=== PATIENT | female | born 1995 | race Caucasian/White ===

== ENCOUNTER 2016-06-16 21:51 | Outpatient (CLI) | payer OTHER ==
[~2016-06-16] VITALS: Ht 144.8 cm; Wt 83.0 kg
[2016-06-16 21:53] VITALS: BP 101/58
[2016-06-16 22:05] VITALS: BP 101/58
[2016-06-16] MEDS ORDERED: NITROFURANTOIN (MACROBID) 100 MG CAP PO ONE (22:30)
== END 2016-06-16 22:37 | disposition home or self-care (01) ==
LOC: M LDO 21:51
PROVIDERS: ATTEND Specialist
DX: N39.0 Urinary tract infection, site not specified (principal); Z3A.24 24 weeks gestation of pregnancy

== ENCOUNTER → 2016-07-09 | Outpatient (CLI) | payer OTHER ==
[2016-07-09 17:56] LABS: BASO % 0.2 % (0.0-1.0); EOS # 0.1 K/mm3 (0.0-0.50); EOS % 1.1 % (0.0-3.0); LARGE UNSTAINED CELL # 0.1 K/mm3 (0.0-0.4); LARGE UNSTAINED CELL % 0.9 % (0.0-4.0); LYMPH # 1.3 K/mm3 (1.5-6.5); LYMPH % 13.7 % (24.0-44.0); MEAN CORPUSCULAR HEMOGLOBIN 30.4 pg (27.0-33.0); MEAN CORPUSCULAR HGB CONC 34.1 g/dl (32.0-36.5); MEAN CORPUSCULAR VOLUME 89.1 fl (80.0-96.0); MONO # 0.3 K/mm3 (0.0-0.8); MONO % 3.3 % (0.0-5.0); NEUTROPHILS # 7.6 K/mm3 (1.8-7.7); NEUTROPHILS % 80.8 % (36.0-66.0); PLATELET COUNT, AUTOMATED 215 k/mm3 (150-450); RED CELL DISTRIBUTION WIDTH 13.2 % (11.5-14.5); WHITE BLOOD COUNT 9.4 K/mm3 (4.0-10.0)
== END ==
LOC: M LAB 15:28
PROVIDERS: ATTEND Advanced Practice Midwife
DX: Z34.83 Encounter for supervision of other normal pregnancy, third trimester (principal); Z36 Encounter for antenatal screening of mother; Z3A.00 Weeks of gestation of pregnancy not specified

== ENCOUNTER → 2016-07-14 | Outpatient (CLI) | payer OTHER | LOC: M LAB 06:28 | PROVIDERS: ATTEND Advanced Practice Midwife | DX: Z34.83 Encounter for supervision of other normal pregnancy, third trimester (principal); Z36 Encounter for antenatal screening of mother; Z3A.00 Weeks of gestation of pregnancy not specified ==

== ENCOUNTER 2016-07-26 09:16 | Outpatient (CLI) | payer OTHER ==
[2016-07-26] VITALS (11 sets, daily range): BP systolic 128–148; BP diastolic 71–87
[~2016-07-26] VITALS: Ht 144.8 cm; Wt 87.0 kg
[2016-07-26] MEDS ORDERED: ZANTTAB PO (09:45)
[2016-07-26] MEDS: LR 1,000 ML IV SCH ×3 (10:36→21:53)
[2016-07-26 12:18] LABS: MEAN CORPUSCULAR HGB CONC 34.6 g/dl (32.0-36.5); MEAN CORPUSCULAR VOLUME 89.6 fl (80.0-96.0); RED CELL DISTRIBUTION WIDTH 12.7 % (11.5-14.5); WHITE BLOOD COUNT 7.6 K/mm3 (4.0-10.0)
--- NOTE | 2016-07-26 12:23 | REP ---
OB ULTRASOUND: Real-time sonographic evaluation of the gravid uterus is performed utilizing transabdominal and endovaginal technique. There is a single living intrauterine gestation. The estimated age is 30 weeks 1 day based on LMP with EDC 10/03/2016. Today's measurements indicate suboptimal growth. Biometry and Growth: BPD 75 mm = 30 weeks 0 days, 49th percentile HC 267 mm = 29 weeks 1 day, 29th percentile AC 239 mm = 28 weeks 1 day, 10th percentile FL 60 mm = 31 weeks 0 days, 64th percentile HC/AC ratio 1.12 within normal range. Estimated weight 1375 grams, 26th percentile. SEEN/GROSSLY UNREMARKABLE Lateral ventricles Yes Posterior fossa Yes Upper lip Yes Four-chamber heart No LVOT No RVOT No Stomach Yes Cord insertion Yes Three vessel cord Yes Kidneys Yes Bladder Yes Spine Yes Cervical length: Closed and measures 2.2 cm in length. This is shortened. heart rate: 136 beats per minute. position: Vertex. Placenta: Posterior and grade 2 with no previa or abruption. Amniotic fluid: Within normal limits, ZORAIDA 11.2 within normal range of 8.7 to 24.0. Biophysical profile score is 6 out of 8 with no points for breathing. S/D ratio is elevated at 6.76, normal range 2.5 to 3.5. RI is 0.85 is above normal range of 0.59 to 0.75. Signed by Zacarias King MD 07/26/2016 12:56 P
[2016-07-26 12:27] LABS: ALBUMIN 2.8 GM/DL (3.2-5.2); ALBUMIN/GLOBULIN RATIO 0.85 (1.00-1.93); ALKALINE PHOSPHATASE 208 U/L (45-117); ALT/SGPT 10 U/L (12-78); AST/SGOT 13 U/L (15-37); BILIRUBIN,DIRECT < 0.1 MG/DL (0.0-0.2); BILIRUBIN,TOTAL 0.2 MG/DL (0.2-1.0); TOTAL PROTEIN 6.1 GM/DL (6.4-8.2)
[2016-07-26 12:36] LABS: INR 0.95
[2016-07-26] MEDS: BETAMETHASONE SOLUSPAN 6MG/ML INJ 5ML (J0702) IM SCH (12:36)
[2016-07-26 13:18] LABS: URIC ACID 6.1 MG/DL (2.6-6.0)
[2016-07-27] MEDS ORDERED: ACETAMINOPHEN 500 MG TAB PO ONE (05:45)
[2016-07-27 07:37] VITALS: BP 151/87
[2016-07-27 07:38] VITALS: BP 148/79
[2016-07-27 10:08] VITALS: BP 121/69
[2016-07-27 11:20] VITALS: BP 121/69
[2016-07-27] MEDS: BETAMETHASONE SOLUSPAN 6MG/ML INJ 5ML (J0702) IM SCH (12:00)
[2016-07-27 13:29] VITALS: BP 91/55
[2016-07-27 15:20] VITALS: BP 117/60
[2016-07-28] MEDS ORDERED: ACET50TA PO (08:20)
[2016-07-28] MEDS ORDERED: MORPHINE PRES-FREE INJ 10 MG/10 ML VIAL (J2274) As Ordered ONE (16:25)
[2016-07-28] MEDS ORDERED: ePHEDrine SULFATE 25 MG/5 ML(5MG/ML) SYRINGE As Ordered ONE (16:30)
[2016-07-28] MEDS ORDERED: DESFLURANE 240 ML INHALANT As Ordered ONE (16:43)
[2016-07-28] MEDS ORDERED: SEVOFLURANE INHAL SOLN 250 ML BTL As Ordered ONE (16:43)
[2016-07-28] MEDS ORDERED: PROPOFOL 200 MG/20 ML VIAL As Ordered ONE (16:44)
[2016-07-28] MEDS ORDERED: ONDANSETRON 4MG/2ML VIAL (J2405) As Ordered ONE (16:44)
== END 2016-07-27 16:10 | disposition home or self-care (01) ==
LOC: M LDO 09:16
PROVIDERS: ATTEND Advanced Practice Midwife
DX: O46.93 Antepartum hemorrhage, unspecified, third trimester (principal); O26.893 Other specified pregnancy related conditions, third trimester; Z3A.30 30 weeks gestation of pregnancy

== ENCOUNTER 2016-07-28 07:40 | Inpatient (IN) | payer OTHER ==
[2016-07-28] VITALS (49 sets, daily range): BP systolic 88–180; BP diastolic 53–98
[~2016-07-28] VITALS: Ht 144.8 cm; Wt 87.0 kg
[~2016-07-28 07:40] MED LIST: ZANTTAB PO
[2016-07-28] MEDS ORDERED: ACET50TA PO (08:20)
[2016-07-28] MEDS ORDERED: PERCOCET 5MG/325MG TAB PO ONE (09:15)
[2016-07-28 09:39] LABS: MEAN CORPUSCULAR HEMOGLOBIN 30.1 pg (27.0-33.0); MEAN CORPUSCULAR HGB CONC 33.5 g/dl (32.0-36.5); MEAN CORPUSCULAR VOLUME 89.9 fl (80.0-96.0); RED CELL DISTRIBUTION WIDTH 12.6 % (11.5-14.5); WHITE BLOOD COUNT 14.9 K/mm3 (4.0-10.0)
[2016-07-28] MEDS ORDERED: PROMETHAZINE INJ 25 MG/ML VIAL (J2550) IV PRN (09:45)
[2016-07-28] MEDS ORDERED: LR 1,000 ML IV SCH (09:45)
[2016-07-28] MEDS ORDERED: MORPHINE 4 MG/ML 1ML SYRINGE IV PRN (09:45)
[2016-07-28 09:50] LABS: ALT/SGPT 11 U/L (12-78); AST/SGOT 11 U/L (15-37); BILIRUBIN,TOTAL 0.2 MG/DL (0.2-1.0); GLOMERULAR FILTRATION RATE > 60.0 (>60); URIC ACID 5.1 MG/DL (2.6-6.0)
[2016-07-28] MEDS: MORPHINE 2 MG/ML 1ML SYRINGE IV PRN ×2 (10:32→13:00)
[2016-07-28] MEDS ORDERED: MAGNESIUM *L&D* 4 GM/100 ML BAG (40MG/ML) (J3475) As Ordered ONE (15:42)
[2016-07-28] MEDS ORDERED: MAGNESIUM SULFATE 4% INJ 20GM/500ML (40MG/ML) (J3475) As Ordered ONE (15:43)
[2016-07-28] MEDS ORDERED: BICITRA 30ML SOLN UDC As Ordered ONE (15:47)
[2016-07-28] MEDS ORDERED: ceFAZolin 2 GM/D5W 50 ML IV BAG (J0690) As Ordered ONE ×2 (15:47→16:01)
[2016-07-28] MEDS ORDERED: PORACTANT ALFA 80MG/ML 3 ML VIAL(CUROSURF) As Ordered ONE (16:30)
[2016-07-28] MEDS: MEPERIDINE INJ 25 MG/ML VIAL (J2175) IV PRN ×2 (17:45→17:53)
[2016-07-28] MEDS ORDERED: MEPERIDINE INJ 25 MG/ML VIAL (J2175) As Ordered ONE (17:47)
[2016-07-28] MEDS ORDERED: diphenhydrAMINE INJ 50MG/ML VIAL (J1200) IV PRN (18:00)
[2016-07-28] MEDS ORDERED: NALBUPHINE HCL 10 MG/ML AMP (J2300) IV PRN (18:00)
[2016-07-28] MEDS ORDERED: fentaNYL 100 MCG/2 ML INJECTION (J3010) IV PRN (18:00)
[2016-07-28] MEDS ORDERED: ONDANSETRON 4MG/2ML VIAL (J2405) IV PRN ×2 (18:00→18:15)
[2016-07-28] MEDS ORDERED: KETOROLAC 30 MG/ML VIAL (J1885) IV SCH (18:00)
[2016-07-28] MEDS ORDERED: CALCIUM GLUCONATE 1,000 MG in D5W MINI-BAG PLUS 100 ML IV PRN (18:15)
[2016-07-28] MEDS ORDERED: MEASLES,MUMPS,RUBELLA VACCINE INJ (MMR-II) (90707) SC SCH (18:15)
[2016-07-28] MEDS ORDERED: DOCUSATE SODIUM 100 MG CAP PO PRN (18:15)
[2016-07-28] MEDS ORDERED: PERCOCET 5MG/325MG TAB PO PRN ×2 (18:15)
[2016-07-28] MEDS ORDERED: MOM 30ML SUSPENSION UDC PO PRN (18:15)
[2016-07-28] MEDS ORDERED: OXYTOCIN DRIP 30 UNITS in APPROPRIATE DILUENT 1 EA IV ONE (18:15)
[2016-07-28] MEDS ORDERED: RHOGAM 300 MCG (1500 IU) INJ (J2790) IM SCH (18:15)
[2016-07-28 18:59] LABS: ALT/SGPT 126 U/L (12-78); AST/SGOT 252 U/L (15-37); BILIRUBIN,TOTAL 0.9 MG/DL (0.2-1.0); GLOMERULAR FILTRATION RATE > 60.0 (>60)
[2016-07-28] MEDS: MAG Sulf (OBGYN) 20GM/500ML 20,000 MG in APPROPRIATE DILUENT 1 EA IV SCH (22:11)
[2016-07-29] VITALS (21 sets, daily range): BP systolic 111–139; BP diastolic 69–90
[2016-07-29] MEDS: diphenhydrAMINE INJ 50MG/ML VIAL (J1200) IV PRN ×2 (00:41→20:45)
[2016-07-29] MEDS: KETOROLAC 30 MG/ML VIAL (J1885) IV SCH ×3 (03:47→15:44)
--- NOTE | 2016-07-29 05:56 | RO ---
DATE OF PROCEDURE: 07/28/2016 PREOPERATIVE DIAGNOSES: 1. Intrauterine at 30 weeks 4 days estimated gestational age. 2. Eclampsia remote from delivery. 3. Placenta abruption. POSTOPERATIVE DIAGNOSES: 1. Intrauterine at 30 weeks 4 days estimated gestational age. 2. Eclampsia remote from delivery. 3. Placenta abruption. PROCEDURE PERFORMED: Primary lower transverse section. SURGEON: Milly Montiel MD ASSISTANTS: Koby Fisher DO ANESTHESIA: Spinal anesthesia. ESTIMATED BLOOD LOSS: 500 mL. INTRAVENOUS FLUIDS: 1500 mL of lactated Ringer solution. URINE OUTPUT: 400 mL. PREOPERATIVE ANTIBIOTICS: 2 grams of Ancef. OPERATIVE FINDINGS: Liveborn female infant Weight was 1116 grams or 2 pounds 7 ounces. Placenta with evidence of placental abruption. INDICATION FOR OPERATION: Ms. Hightower is a 20-year-old, initially presented 07/26/2016 with acute vaginal bleeding. She suspected for having a clinical abruption. She had remained stable for greater than 24 hours. She had received a course of steroids for lung maturity and was discharged home on 07/27/2016 in stable condition. On 07/28/2016, she presented with an acute onset of neck, shoulder pain with a headache. She described this headache as being severe in nature and had no prior history of migraines or headache syndromes. On presentation, she also had nausea and vomiting and upon my initial assessment she was noted to have elevated blood pressures. Blood pressures where very labile, ranging from severe to normotensive at times. She was quickly assessed with preeclamptic labs. She was provided with intravenous (IV) hydration, was given antiemetics and morphine for pain, which appears to have improved her symptoms initially, but returned within a couple of hours. Protein urine creatinine had returned at 1.3 , officially diagnosing her with preeclampsia, presented with severe features. Shortly after this assessment, the patient experienced a eclamptic seizure and she was given a 6 gram loading bolus of magnesium sulfate and then stabilized. During this episode, the heart rate had remained reassuring. Once Ms. Hightower had recovered and was out of her postictal state, decision was made to proceed with the delivery secondary to her eclampsia remote from delivery. DESCRIPTION OF OPERATION: After informed consent was obtained, the patient was brought to the operating room where spinal anesthesia was placed. She was then placed in supine position with a left lateral tilt. A Campos catheter was placed and set to gravity. She was then prepped and draped in a normal sterile fashion. A time-out in the operating room was then performed, identifying the patient, procedure to be performed, as well as drug allergies. Anesthesia was tested and deemed to be adequate. A Pfannenstiel skin incision was then made and carried down to the underlying rectus fascia. The fascia was then scored and this incision was extended bilaterally. The fascia was then dissected off the underlying rectus muscles both superiorly and inferiorly. The rectus muscles were in the midline. The peritoneum was then entered. The vesicouterine peritoneum was then identified, was tented and excised to create a bladder flap. The bladder blade was then placed to retract back the bladder. Curvilinear incision was made in the lower uterine segment. Amniotomy was then performed productive of clear fluid. head was brought to the level of the incision atraumatically, followed by delivery of shoulders and corpus. Cord was clamped times two and was cut. was taken over to the warmer where Dr. Woo, supervisor drying and softening, awaited. Cord blood was then obtained. Placenta was then delivered grossly intact. The uterus was then exteriorized and cleared of all clots and debris. The uterine incision was then closed in two layers using #0 Vicryl, first layer in a running locking fashion, followed by a second layer for imbrication in a running nonlocking fashion. The abdomen was then suctioned. The uterus was returned to the patient's abdomen. It was once again inspected and noted to be hemostatic. The anterior peritoneum was then reapproximated with #3-0 Vicryl. Rectus muscles were reapproximated with #3-0 Vicryl. The fascia was then closed with #0 Vicryl in a running nonlocking fashion. Next, the subcutaneous tissue was then irrigated and suctioned. Subcutaneous tissue was then reapproximated with #3-0 Vicryl. Several subdermal stitches were placed with #3-0 Vicryl and the skin was closed with #4-0 Monocryl in a subcuticular fashion. The incision was then cleaned and dry. Mastisol was applied above, below the incision. Steri-Strips were applied over the incision. The incision was then dressed. Patient was then taken to recovery in stable condition. Counts were correct. MTDD
[2016-07-29 07:01] LABS: MEAN CORPUSCULAR HEMOGLOBIN 30.9 pg (27.0-33.0); MEAN CORPUSCULAR HGB CONC 34.2 g/dl (32.0-36.5); MEAN CORPUSCULAR VOLUME 90.6 fl (80.0-96.0); WHITE BLOOD COUNT 11.4 K/mm3 (4.0-10.0)
[2016-07-29 07:06] LABS: ALT/SGPT 99 U/L (12-78); AST/SGOT 188 U/L (15-37); BILIRUBIN,TOTAL 0.7 MG/DL (0.2-1.0); CREATININE FOR GFR 0.76 MG/DL (0.55-1.02); GLOMERULAR FILTRATION RATE > 60.0 (>60); URIC ACID 6.2 MG/DL (2.6-6.0)
[2016-07-29] MEDS ORDERED: IBUP800T23 PO (07:16)
[2016-07-29] MEDS ORDERED: OXYC1TAB23 PO (07:17)
[2016-07-29] MEDS: LR 1,000 ML IV SCH ×4 (07:22→21:34)
[2016-07-29] MEDS: PRENATAL VITAMIN TAB PO SCH ×2 (08:42→09:00)
[2016-07-29] MEDS: MAG Sulf (OBGYN) 20GM/500ML 20,000 MG in APPROPRIATE DILUENT 1 EA IV SCH ×2 (08:42→18:55)
[2016-07-29 17:14] LABS: BASO % 0.2 % (0.0-1.0); EOS # 0.1 K/mm3 (0.0-0.50); EOS % 0.6 % (0.0-3.0); LARGE UNSTAINED CELL # 0.1 K/mm3 (0.0-0.4); LARGE UNSTAINED CELL % 0.6 % (0.0-4.0); LYMPH # 1.2 K/mm3 (1.5-6.5); LYMPH % 12.9 % (24.0-44.0); MEAN CORPUSCULAR HGB CONC 34.7 g/dl (32.0-36.5); MEAN CORPUSCULAR VOLUME 89.2 fl (80.0-96.0); MONO # 0.5 K/mm3 (0.0-0.8); MONO % 4.7 % (0.0-5.0); NEUTROPHILS # 7.7 K/mm3 (1.8-7.7); NEUTROPHILS % 80.9 % (36.0-66.0); WHITE BLOOD COUNT 9.5 K/mm3 (4.0-10.0)
[2016-07-29 17:16] LABS: ALBUMIN 2.5 GM/DL (3.2-5.2); ALBUMIN/GLOBULIN RATIO 0.86 (1.00-1.93); ALKALINE PHOSPHATASE 165 U/L (45-117); ALT/SGPT 81 U/L (12-78); ANION GAP 9 MEQ/L (8-16); AST/SGOT 90 U/L (15-37); BILIRUBIN,TOTAL 0.4 MG/DL (0.2-1.0); BLOOD UREA NITROGEN 8 MG/DL (7-18); CALCIUM LEVEL 6.1 MG/DL (8.5-10.1); CARBON DIOXIDE LEVEL 28 MEQ/L (21-32); CHLORIDE LEVEL 100 MEQ/L (98-107); CREATININE FOR GFR 0.68 MG/DL (0.55-1.02); GLOMERULAR FILTRATION RATE > 60.0 (>60); GLUCOSE, FASTING 102 MG/DL (70-105); POTASSIUM SERUM 3.8 MEQ/L (3.5-5.1); SODIUM LEVEL 137 MEQ/L (136-145); TOTAL PROTEIN 5.4 GM/DL (6.4-8.2); URIC ACID 5.8 MG/DL (2.6-6.0)
[2016-07-29 17:27] LABS: PLATELET COUNT, AUTOMATED 62 k/mm3 (150-450)
[2016-07-29] MEDS ORDERED: LIDOCAINE 2% JELLY 30 ML TOP ONE (20:00)
--- NOTE | 2016-07-29 21:17 | HPE ---
DATE OF ADMISSION: 07/28/2016 REASON FOR ADMISSION: Preeclampsia, eclampsia. HISTORY OF PRESENT ILLNESS: Ms. Hightower is a 20-year-old 1, who presented at 30 weeks and 3 days estimated gestational age by first trimester ultrasound with complaints of neck, shoulder and headache. This patient was initially evaluated on the of this month for acute onset of vaginal bleeding. She was assessed and was given a diagnosis of a chronic abruption. She was monitored and evaluated for more than 24 hours. Her bleeding had subsided. She had remained stable and had received a full course of steroids and was discharged home on the in stable condition to followup in the obstetric office (OB). She presented this morning with complaints of headache that was severe in nature, that was not relieved with Tylenol at home over the night. She denied any visual changes, persistent abdominal pain or decreased movement, vaginal bleeding, contractions or leakage of fluid. Upon her presentation to labor and delivery and she had severe nausea and emesis. With her initial evaluation, she had elevated blood pressures, 151/77 with intermittent severe range systolic blood pressure to 160s. She was given IV bolus along with antiemetics and morphine, which reduced the intensity of her headache and allowed her to sleep. Preeclamptic labs were obtained. She had a normal preeclamptic panel and complete blood count (CBC) was unremarkable, platelets of 204. Her proteinuria creatine ratio was obtained that was 1.3 inclusive of preeclampsia. Shortly after, Ms. Hightower had a eclamptic seizure which was witnessed. She was given a 6 gram bolus of magnesium sulfate and started on 2 grams of magnesium sulfate for neuro prophylaxis. After her bolus was complete, her course had been unremarkable for third trimester bleeding. PAST MEDICAL HISTORY: None. PAST SURGICAL HISTORY: Oral surgery. OBSTETRICAL HISTORY: She is 1. Her medications include vitamins. ALLERGIES: She has allergies to SULFUR. SOCIAL HISTORY: She denied any alcohol, tobacco or drug use during her . PHYSICAL EXAMINATION: Blood pressures were elevated, appeared to labile with intermittent systolic in the 160s even to 170s. GENERAL APPEARANCE: She had reassuring tracing. ABDOMEN: Soft, gravid, nontender. INITIAL LABORATORY: Her complete blood count (CBC), white count was 14.9, hemoglobin 11.7, hematocrit 34.9, platelets were 204. Her creatine was 0.6. Uric acid 5.1. Bilirubin 0.2. AST 11, ALT 11, LDH was 208. All other unremarkable. Protein creatine ratio was 1.3. ASSESSMENT: Mr. Hightower is a 20-year-old, 1, at 30 weeks and 3 days estimated gestational age, eclampsia currently stable. PLAN: Continue to recover both mom and the baby and will proceed with delivery secondary to her eclampsia and being remote from delivery. MTDD
[2016-07-29] MEDS: IBUPROFEN 800 MG TAB PO SCH (23:33)
[2016-07-30] VITALS (15 sets, daily range): BP systolic 118–151; BP diastolic 68–92
[2016-07-30] MEDS: MAG Sulf (OBGYN) 20GM/500ML 20,000 MG in APPROPRIATE DILUENT 1 EA IV SCH ×2 (00:02→04:55)
[2016-07-30] MEDS ORDERED: SODIUM CHLORIDE NASAL 0.65% SPRAY BTL (OCEAN) PRN (07:00)
[2016-07-30 07:45] LABS: BASO % 0.2 % (0.0-1.0); EOS # 0.1 K/mm3 (0.0-0.50); EOS % 1.1 % (0.0-3.0); LARGE UNSTAINED CELL # 0.1 K/mm3 (0.0-0.4); LYMPH # 1.4 K/mm3 (1.5-6.5); LYMPH % 12.4 % (24.0-44.0); MEAN CORPUSCULAR HEMOGLOBIN 30.5 pg (27.0-33.0); MEAN CORPUSCULAR HGB CONC 33.6 g/dl (32.0-36.5); MEAN CORPUSCULAR VOLUME 90.8 fl (80.0-96.0); MONO # 0.5 K/mm3 (0.0-0.8); MONO % 5.1 % (0.0-5.0); NEUTROPHILS # 8.5 K/mm3 (1.8-7.7); NEUTROPHILS % 80.2 % (36.0-66.0); WHITE BLOOD COUNT 10.6 K/mm3 (4.0-10.0)
[2016-07-30 07:50] LABS: PLATELET COUNT, AUTOMATED 71 k/mm3 (150-450)
[2016-07-30 08:04] LABS: ALBUMIN 2.3 GM/DL (3.2-5.2); ALBUMIN/GLOBULIN RATIO 0.82 (1.00-1.93); ALKALINE PHOSPHATASE 150 U/L (45-117); ALT/SGPT 61 U/L (12-78); ANION GAP 8 MEQ/L (8-16); AST/SGOT 40 U/L (15-37); BILIRUBIN,TOTAL 0.3 MG/DL (0.2-1.0); BLOOD UREA NITROGEN 9 MG/DL (7-18); CARBON DIOXIDE LEVEL 29 MEQ/L (21-32); CHLORIDE LEVEL 102 MEQ/L (98-107); CREATININE FOR GFR 0.61 MG/DL (0.55-1.02); GLOMERULAR FILTRATION RATE > 60.0 (>60); GLUCOSE, FASTING 87 MG/DL (70-105); POTASSIUM SERUM 3.8 MEQ/L (3.5-5.1); SODIUM LEVEL 139 MEQ/L (136-145); TOTAL PROTEIN 5.1 GM/DL (6.4-8.2); URIC ACID 5.8 MG/DL (2.6-6.0)
[2016-07-30 08:18] LABS: CALCIUM LEVEL 5.7 MG/DL (8.5-10.1)
[2016-07-30 08:19] LABS: MAGNESIUM LEVEL 7.9 MG/DL (1.8-2.4)
[2016-07-30] MEDS: PRENATAL VITAMIN TAB PO SCH (08:48)
[2016-07-30] MEDS: IBUPROFEN 800 MG TAB PO SCH ×3 (08:48→23:28)
--- NOTE | 2016-07-30 09:00 | REP ---
Right lower extremity Duplex Doppler venous ultrasound: Real time compression and duplex Doppler interrogation of the right lower extremity deep venous system is performed. The right common femoral, superficial femoral and popliteal veins are fully compressible with transducer pressure and demonstrate normal spontaneous and phasic flow, without evidence of deep venous thrombosis. Impression: No evidence of deep venous thrombosis of the right lower extremity femoral popliteal venous system. Signed by Zacarias King MD 07/30/2016 08:51 A
[2016-07-30] MEDS: LR 1,000 ML IV SCH (10:02)
[2016-07-31 01:25] VITALS: BP 139/82
[2016-07-31 05:32] VITALS: BP 143/98
[2016-07-31 06:40] LABS: MEAN CORPUSCULAR HEMOGLOBIN 30.3 pg (27.0-33.0); MEAN CORPUSCULAR VOLUME 91.8 fl (80.0-96.0); RED CELL DISTRIBUTION WIDTH 13.4 % (11.5-14.5); WHITE BLOOD COUNT 11.4 K/mm3 (4.0-10.0)
[2016-07-31] MEDS: IBUPROFEN 800 MG TAB PO SCH (07:30)
[2016-07-31] MEDS: PRENATAL VITAMIN TAB PO SCH (07:30)
--- NOTE | 2016-07-31 10:20 | DSES ---
DATE OF ADMISSION: 07/28/2016 DATE OF DISCHARGE: 07/31/2016 DISCHARGE DIAGNOSIS: 1. Postoperative day #3 primary section, stable condition. 2. HELLP syndrome. 3. Severe preeclampsia, resolving in stable condition. SURGEON Dr. Milly Montiel HISTORY: Solomon is a 20-year-old 1, para 0-1-0-1 now who was admitted to labor and delivery with severe preeclampsia. Eclampsia in the onset of HELLP syndrome. She underwent a primary section following an eclamptic seizure and stabilization. Her surgical operative course was unremarkable, uncomplicated. She delivered a live female 31+ weeks, 1116 grams, 2 pounds 7 ounces, who was transferred to [facility] intensive care unit. Her postoperative course has been complicated by the onset of HELLP syndrome. Her labs have improved. Initially on 07/29, she had a hemoglobin of 10.3, hematocrit 30.3, platelets of 60 and today her hemoglobin is 11, hematocrit 33.5 and platelets are 98. Her pre-eclamptic profile has also improved. Her AST is 40. Her ALT was 61. Her alkaline phosphatase is 150 and her LDH was 496 which has come down from 872, uric acid 5.8. She has been voiding without difficulty. She denies complete resolution of headaches, blurred vision, no epigastric pain. No right upper quadrant pain since delivery. She has been out of bed for self care, anika care, showering. She is tolerating a regular diet. Her vital signs are stable today. Her temperature is 95, pulse 79, respirations 22, her blood pressures remain 143/98 this morning, they run systolics in the 130 to 140 and diastolics in the in the 70s to 80s. She does desire discharge today. PLAN: Discharge the patient home per consult with Dr. Quang Lopez. She does plan on going to [place] and obtaining a room at the [facility] to be near her premature infant. I have reviewed discharge instructions which include blood pressure check while she is at [facility] Blood pressure check in 3- 4 days at [facility], two-week followup at [facility] for an incision check [facility] and a 6-week appointment at [facility]. Prescriptions for oral Percocet has been E prescribed by her surgeon and sent to her pharmacy. She may also take ibuprofen and Tylenol as needed. I did review discharge instructions which include breast care incision care, anika care, pelvic rest, activity and lifting restrictions, access to care, other danger signs in which to report related to worsening HELLP syndrome and preeclampsia. The patient has had all her questions answered and will be discharged to home. JARET
[2016-07-31] MEDS ORDERED: PRENTAB9 PO (11:00)
== END 2016-07-31 11:35 | disposition home or self-care (01) | DRG 540 ==
LOC: M LDO 07:40 → M LDI 10:15 → M LDO 15:46 → M LDI 15:47 → M OBS 18:30
PROVIDERS: ADMIT Obstetrics & Gynecology; ATTEND Obstetrics & Gynecology
PROC: 10D00Z1 Extraction of Products of Conception, Low, Open Approach (ICD-10-PCS; principal; 2016-07-28 17:26)
DX: O15.03 Eclampsia complicating pregnancy, third trimester (principal); O45.93 Premature separation of placenta, unspecified, third trimester; Z3A.30 30 weeks gestation of pregnancy; Z37.0 Single live birth; O14.14 Severe pre-eclampsia complicating childbirth; O14.25 HELLP syndrome, complicating the puerperium

== ENCOUNTER → 2017-01-18 | Outpatient (REF) | payer OTHER ==
[~2017-01-18] MED LIST changes: +ACET50TA PO; +IBUP1TAB7 PO; +OXYC1TAB23 PO; +PRENTAB9 PO
== END ==
LOC: M LAB REF 13:06
PROVIDERS: ATTEND Obstetrics & Gynecology
DX: Z12.4 Encounter for screening for malignant neoplasm of cervix (principal)

== ENCOUNTER → 2017-06-24 | Outpatient (REF) | payer OTHER | LOC: M SFHCADAM 13:57 | DX: F34.1 Dysthymic disorder (principal); E55.9 Vitamin D deficiency, unspecified ==

== ENCOUNTER → 2017-06-28 | Outpatient (CLI) | payer OTHER ==
[2017-06-28 16:29] LABS: FREE T4 1.19 NG/DL (0.76-1.46); TOTAL 25(OH) VITAMIN D 13.3 NG/ML (30.0-100.0)
== END ==
LOC: M LAB 15:20
DX: F34.1 Dysthymic disorder (principal); E55.9 Vitamin D deficiency, unspecified
CPT/HCPCS: 84443

== ENCOUNTER → 2017-09-09 | Outpatient (REF) | payer OTHER | LOC: M SFHCADAM 19:23 | DX: R10.9 Unspecified abdominal pain (principal) ==

== ENCOUNTER → 2017-12-22 | Outpatient (REF) | payer OTHER | LOC: M SFHCLERA 16:22 | DX: J02.9 Acute pharyngitis, unspecified (principal) ==

== ENCOUNTER → 2018-03-07 | Outpatient (CLI) | payer OTHER | LOC: M LRY 18:46 | DX: M25.562 Pain in left knee (principal) | CPT/HCPCS: 73564 ==

== ENCOUNTER 2018-11-16 09:07 | Emergency (ER) | payer OTHER ==
[~2018-11-16] VITALS: Ht 144.8 cm; Wt 52.6 kg
[~2018-11-16 09:07] MED LIST changes: -ACET50TA PO; +MAPA500T2 PO; +ZANT150T40 PO; -ZANTTAB PO
[2018-11-16] MEDS ORDERED: HYDR-3363 (09:17)
[2018-11-16] MEDS ORDERED: XULA1DIS (09:17)
[2018-11-16] MEDS ORDERED: ALBU8.5H (09:17)
[2018-11-16 10:55] LABS: ALT/SGPT 20 U/L (12-78); BILIRUBIN,DIRECT 0.2 MG/DL (0.0-0.2); BILIRUBIN,TOTAL 0.6 MG/DL (0.2-1.0); BLOOD UREA NITROGEN 7 MG/DL (7-18); CALCIUM LEVEL 9.5 MG/DL (8.5-10.1); CARBON DIOXIDE LEVEL 27 MEQ/L (21-32); CHLORIDE LEVEL 108 MEQ/L (98-107); CK-MB VALUE MASS < 1.0 NG/ML (<3.6); CPK CREATINE PHOSPHOKINASE 48 U/L (26-192); FREE T4 1.17 NG/DL (0.76-1.46); GLOMERULAR FILTRATION RATE > 60.0 (>60); GLUCOSE, FASTING 76 MG/DL (70-100); MB/CK RELATIVE INDEX 2.08 (< OR =4); POTASSIUM SERUM 4.1 MEQ/L (3.5-5.1); SODIUM LEVEL 141 MEQ/L (136-145); THYROID STIMULATING HORMONE 0.604 uIU/ML (0.358-3.740); TOTAL PROTEIN 7.2 GM/DL (6.4-8.2); TROPONIN I < 0.02 NG/ML (< 0.10)
--- NOTE | 2018-11-16 10:58 | REP ---
Chest x-ray: Two views. History: Chest pain . Comparison study: June 06, 2015 . Findings: The lungs are well inflated and free of infiltrate. The pleural angles are sharp. The heart size is normal. Pulmonary vasculature is not increased. No significant bony abnormality is seen. Impression: Negative chest x-ray. Electronically Signed by Guillermo Galvan MD 11/16/2018 10:49 A
[2018-11-16 11:33] VITALS: BP 110/60
--- NOTE | 2018-11-16 19:23 | ECGEPIP ---
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
== END 2018-11-16 11:34 | disposition home or self-care (01) ==
LOC: M ED 09:07
DX: F41.9 Anxiety disorder, unspecified (principal); R07.89 Other chest pain; R94.31 Abnormal electrocardiogram [ECG] [EKG]; Z79.899 Other long term (current) drug therapy; Z88.2 Allergy status to sulfonamides

== ENCOUNTER → 2018-11-20 | Outpatient (CLI) | payer OTHER ==
[~2018-11-20] MED LIST changes: +ALBU8.5H; +HYDR-3363; +XULA1DIS
--- NOTE | 2018-11-21 20:17 | HOLTMON ---
[facility] Test Date: 2018-11-20 Pat Name: ELIZABETH VARGAS Department: Room: - Gender: Female Life Educator: KAYCEE CAPELLAN : 1995 Requested By: Robert Burr Order Number: [id number] Reading MD: Darwin Redding Interpretive Statements LEADS FELL OFF THREW OUT HOLTER PT STATED SHE FELT FINE. DID NOT BRING HER DIARY BACK CLAIMED SHE WAS FINE. Underlying sinus rhythm with rates 39 bpm at 5:22 AM and 108 bpm at 8:51 AM, averaging 65 bpm. No significant diurnal bradycardia or AV block. 22 isolated PACs, 4 atrial couplets and 2 atrial triplets but no PSVT. An average of 169 PVCs per hour, total of 12 ventricular couplets but no ventricular tachycardia. No diary was returned; the patient reported feeling well. The observed low grade ventricular ectopic activity would be considered outside normal limits. These were chiefly of a LBBB configuration suggestive of right ventricular outflow tract origin. The prognosis associated with this arrhythmia is directly related to the presence and severity of any associated structural heart disease. A search for potentially aggravating reversible factors should be made i.e. excessive caffeine, nicotine or alcohol intake. Use of [id number] decongestants, pep pills, or dietary aids Electronically Signed on 11-21-2018 20:17:35 EDT by Darwin Redding
== END ==
LOC: M EKG 10:32
PROVIDERS: ATTEND Family Medicine
DX: R00.2 Palpitations (principal)

== ENCOUNTER → 2019-03-12 | Outpatient (REF) | payer OTHER | LOC: M LAB REF 17:26 | PROVIDERS: ATTEND Physician Assistant | DX: R05 Cough (principal) ==

== ENCOUNTER → 2019-05-04 | Outpatient (CLI) | payer OTHER ==
--- NOTE | 2019-05-04 14:21 | REP ---
Clinical: Left shoulder pain . Technique: Internal rotation, external rotation, and Y view. Findings: No acute fracture or dislocation. The acromioclavicular and glenohumeral joints are intact. No periarticular calcifications or degenerative changes are appreciated. Sub acromial space is normal. Surrounding soft tissues are unremarkable. Impression: Normal left shoulder radiographs. Electronically Signed by Shailesh Olson MD 05/04/2019 02:13 P
== END ==
LOC: M ADAMS 14:01
PROVIDERS: ATTEND Physician Assistant Medical
DX: M25.512 Pain in left shoulder (principal)

== ENCOUNTER → 2019-06-28 | Outpatient (CLI) | payer OTHER ==
[2019-06-28 18:10] LABS: BASO % 0.7 % (0.0-1.0); EOS # 0.2 10^3/uL (0.0-0.5); EOS % 2.8 % (0.0-3.0); HEMATOCRIT 46.7 % (36.0-47.0); LYMPH # 1.7 10^3/uL (1.5-5.0); LYMPH % 28.1 % (24.0-44.0); MEAN CORPUSCULAR HEMOGLOBIN 30.2 pg (27.0-33.0); MEAN CORPUSCULAR HGB CONC 32.1 g/dl (32.0-36.5); MONO # 0.5 10^3/uL (0.0-0.8); MONO % 8.1 % (0.0-5.0); NEUTROPHILS # 3.7 10^3/uL (1.5-8.5); NEUTROPHILS % 60.1 % (36.0-66.0); PLATELET COUNT, AUTOMATED 197 10^3/uL (150-450); RED BLOOD COUNT 4.97 10^6/uL (4.00-5.40); WHITE BLOOD COUNT 6.1 10^3/uL (4.0-10.0)
[2019-06-28 18:13] LABS: HCG, SERUM QUALITATIVE NEGATIVE (NEGATIVE)
[2019-06-28 18:21] LABS: FREE T4 1.03 NG/DL (0.76-1.46); THYROID STIMULATING HORMONE 0.445 uIU/ML (0.358-3.740)
== END ==
LOC: M PLALAB 13:41
PROVIDERS: ATTEND Advanced Practice Midwife
DX: N92.6 Irregular menstruation, unspecified (principal)

== ENCOUNTER → 2019-10-23 | Outpatient (REF) | payer OTHER | LOC: M SFHCWAGY 11:52 | PROVIDERS: ATTEND Advanced Practice Midwife | DX: Z12.4 Encounter for screening for malignant neoplasm of cervix (principal); Z01.419 Encounter for gynecological examination (general) (routine) without abnormal findings ==

== ENCOUNTER → 2020-05-20 | Outpatient (CLI) | payer SELFPAY | LOC: M LABSMTC 09:38 | PROVIDERS: ATTEND Pediatrics | DX: Z20.828 Contact with and (suspected) exposure to other viral communicable diseases (principal) ==

== ENCOUNTER → 2020-06-02 | Outpatient (REF) | payer OTHER | LOC: M LAB REF 16:03 | PROVIDERS: ATTEND Physician Assistant Medical | DX: R50.9 Fever, unspecified (principal); R05 Cough ==

== ENCOUNTER → 2021-02-10 | Outpatient (REF) | payer OTHER, MEDICAID | LOC: M SFHCWAGY 18:03 | PROVIDERS: ATTEND Advanced Practice Midwife | DX: Z12.4 Encounter for screening for malignant neoplasm of cervix (principal) ==

== ENCOUNTER → 2021-10-07 | Outpatient (REF) | payer OTHER, MEDICAID ==
[2021-10-07 22:02] LABS: APPEARANCE, URINE CLOUDY (CLEAR); BACTERIA, URINE AUTO NEGATIVE (NEGATIVE); BILIRUBIN, URINE AUTO NEGATIVE (NEGATIVE); BLOOD, URINE BLOOD NEGATIVE (NEGATIVE); COLOR, URINE AMBER (YELLOW); GLUCOSE, URINE (UA) AUTO NEGATIVE (NEGATIVE); KETONE, URINE AUTO TRACE mg/dL (NEGATIVE); LEUKOCYTE ESTERASE, URINE AUTO NEGATIVE (NEGATIVE); MUCUS, URINE LARGE (NEGATIVE); NITRITE, URINE AUTO NEGATIVE (NEGATIVE); PROTEIN, URINE AUTO 1+ mg/dL (NEGATIVE); RBC, URINE AUTO 2 /HPF (0-3); SPECIFIC GRAVITY URINE AUTO 1.026 (1.002-1.035); SQUAMOUS EPITHELIAL CELL UR AU 24 /HPF (0-6); WBC, URINE AUTO 1 /HPF (0-3)
== END ==
LOC: M LAB REF 21:26
PROVIDERS: ATTEND Physician Assistant
DX: N39.0 Urinary tract infection, site not specified (principal)

== ENCOUNTER → 2022-08-20 | Outpatient (CLI) | payer OTHER ==
[~2022-08-20] MED LIST changes: +ALTA1TAB3; +AMPH1CAP16; +LAMO100T3; +OMEP40CA4 PO; +ONDA4TAB6
[2022-08-20 18:46] LABS: EOS # 0.1 10^3/uL (0.0-0.5); EOS % 4.6 % (0.0-3.0); HEMATOCRIT 36.4 % (36.0-47.0); HEMOGLOBIN 11.1 g/dl (12.0-15.5); LYMPH % 33.7 % (24.0-44.0); MEAN CORPUSCULAR HEMOGLOBIN 25.3 pg (27.0-33.0); MEAN CORPUSCULAR HGB CONC 30.5 g/dl (32.0-36.5); MEAN CORPUSCULAR VOLUME 83.1 fl (80.0-96.0); MONO # 0.3 10^3/uL (0.0-0.8); MONO % 9.2 % (2.0-8.0); NEUTROPHILS # 1.6 10^3/uL (1.5-8.5); NEUTROPHILS % 51.2 % (36.0-66.0); PLATELET COUNT, AUTOMATED 236 10^3/uL (150-450); RED BLOOD COUNT 4.38 10^6/uL (4.00-5.40)
[2022-08-20 19:14] LABS: LIPASE 32 U/L (12-53)
[2022-08-20 19:16] LABS: ALBUMIN 3.8 G/DL (3.2-5.2); ALKALINE PHOSPHATASE 79 U/L (46-116); ALT/SGPT 14 U/L (7.0-40); AMYLASE 61 U/L (30-118); AST/SGOT 16 U/L (<34); BILIRUBIN,TOTAL 0.3 MG/DL (0.3-1.2); BLOOD UREA NITROGEN 8 MG/DL (9-23); CALCIUM LEVEL 8.8 MG/DL (8.5-10.1); CARBON DIOXIDE LEVEL 23 MMOL/L (20-31); CHLORIDE LEVEL 106 MMOL/L (98-107); CREATININE FOR GFR 0.77 MG/DL (0.55-1.30); GLOMERULAR FILTRATION RATE > 60.0 (>60); GLUCOSE, FASTING 73 MG/DL (60-100); IRON (FE) 20 UG/DL (50-170); PERCENT SATURATION 3.8 % (13.2-45.0); POTASSIUM SERUM 4.3 MMOL/L (3.5-5.1); SODIUM LEVEL 139 MMOL/L (136-145); TOTAL IRON BINDING CAPACITY 533 UG/DL (250-425); TOTAL PROTEIN 6.7 G/DL (5.7-8.2)
[2022-08-23 15:09] LABS: EBV AB TO NUCLEAR ANTIGEN >600.0 U/mL (0.0-17.9); EBV VIRAL CAPSID AG IgG 99.3 U/mL (0.0-17.9); EBV VIRAL CAPSID AG IgM <36.0 U/mL (0.0-35.9)
== END ==
LOC: M LAB 18:01
PROVIDERS: ATTEND Physician Assistant
DX: R10.32 Left lower quadrant pain (principal)

== ENCOUNTER 2022-08-24 09:37 | Emergency (ER) | payer OTHER ==
[~2022-08-24] VITALS: Ht 144.8 cm; Wt 51.3 kg
[~2022-08-24 09:37] MED LIST changes: -ALTA1TAB3; -AMPH1CAP16; -LAMO100T3; -OMEP40CA4 PO; -ONDA4TAB6
[2022-08-24] MEDS ORDERED: ALTA1TAB3 (09:48)
[2022-08-24] MEDS ORDERED: ONDA4TAB6 (09:48)
[2022-08-24] MEDS ORDERED: OMEP40CA4 PO (09:48)
[2022-08-24] MEDS ORDERED: LAMO100T3 (09:48)
[2022-08-24] MEDS ORDERED: AMPH1CAP16 (09:48)
[2022-08-24 10:30] LABS: BASO % 0.5 % (0.0-1.0); EOS # 0.1 10^3/uL (0.0-0.5); EOS % 2.4 % (0.0-3.0); HEMATOCRIT 38.5 % (36.0-47.0); HEMOGLOBIN 11.7 g/dl (12.0-15.5); LYMPH # 1.2 10^3/uL (1.5-5.0); LYMPH % 31.2 % (24.0-44.0); MEAN CORPUSCULAR HEMOGLOBIN 25.4 pg (27.0-33.0); MEAN CORPUSCULAR HGB CONC 30.4 g/dl (32.0-36.5); MEAN CORPUSCULAR VOLUME 83.5 fl (80.0-96.0); MONO # 0.2 10^3/uL (0.0-0.8); MONO % 5.6 % (2.0-8.0); NEUTROPHILS # 2.3 10^3/uL (1.5-8.5); PLATELET COUNT, AUTOMATED 253 10^3/uL (150-450); RED BLOOD COUNT 4.61 10^6/uL (4.00-5.40); WHITE BLOOD COUNT 3.8 10^3/uL (4.0-10.0)
[2022-08-24 11:02] LABS: BLOOD UREA NITROGEN 8 MG/DL (9-23); CALCIUM LEVEL 8.6 MG/DL (8.5-10.1); CARBON DIOXIDE LEVEL 25 MMOL/L (20-31); CHLORIDE LEVEL 108 MMOL/L (98-107); CREATININE FOR GFR 0.77 MG/DL (0.55-1.30); GLOMERULAR FILTRATION RATE > 60.0 (>60); GLUCOSE, FASTING 80 MG/DL (60-100); POTASSIUM SERUM 4.7 MMOL/L (3.5-5.1); SODIUM LEVEL 139 MMOL/L (136-145)
[2022-08-24 11:04] LABS: THYROID STIMULATING HORMONE 0.749 uIU/ML (0.55-4.78)
[2022-08-24 16:48] LABS: MAGNESIUM LEVEL 1.9 MG/DL (1.8-2.4)
[2022-08-24 16:49] LABS: IRON (FE) 16 UG/DL (50-170); TOTAL IRON BINDING CAPACITY 541 UG/DL (250-425)
[2022-08-24 16:51] LABS: VITAMIN B12 LEVEL 1124 PG/ML (211-911)
[2022-08-24 16:52] LABS: FERRITIN 2.8 NG/ML (7.3-270.7)
[2022-08-24 16:59] LABS: FOLATE 16.95 NG/ML (>5.4)
[2022-08-24 17:19] VITALS: BP 109/56
== END 2022-08-24 17:26 | disposition home or self-care (01) ==
LOC: M ED 09:37
DX: B27.90 Infectious mononucleosis, unspecified without complication (principal); D50.9 Iron deficiency anemia, unspecified; K21.9 Gastro-esophageal reflux disease without esophagitis; G40.909 Epilepsy, unspecified, not intractable, without status epilepticus; F41.9 Anxiety disorder, unspecified; F90.0 Attention-deficit hyperactivity disorder, predominantly inattentive type; Z98.84 Bariatric surgery status; Z88.2 Allergy status to sulfonamides; Z79.83 Long term (current) use of bisphosphonates; Z79.899 Other long term (current) drug therapy

== ENCOUNTER 2022-08-25 15:01 | Emergency (ER) | payer OTHER ==
[~2022-08-25] VITALS: Ht 144.8 cm; Wt 55.0 kg
[~2022-08-25 15:01] MED LIST changes: +ALTA1TAB3; +AMPH1CAP16; +LAMO100T3; +OMEP40CA4 PO; +ONDA4TAB6
[2022-08-25] MEDS ORDERED: ONDANSETRON 4MG 2ML VIAL IV ONE (16:50)
[2022-08-25] MEDS ORDERED: NS 1,000 ML IV ONE (16:50)
[2022-08-25] MEDS ORDERED: ACETAMINOPHEN 1000MG 100ML IV BAG IV ONE (16:50)
[2022-08-25 17:45] LABS: BASO % 0.2 % (0.0-1.0); EOS # 0.1 10^3/uL (0.0-0.5); EOS % 1.2 % (0.0-3.0); HEMOGLOBIN 11.9 g/dl (12.0-15.5); LYMPH # 1.7 10^3/uL (1.5-5.0); MEAN CORPUSCULAR HEMOGLOBIN 25.1 pg (27.0-33.0); MEAN CORPUSCULAR HGB CONC 30.5 g/dl (32.0-36.5); MEAN CORPUSCULAR VOLUME 82.3 fl (80.0-96.0); MONO # 0.4 10^3/uL (0.0-0.8); MONO % 4.5 % (2.0-8.0); NEUTROPHILS # 6.3 10^3/uL (1.5-8.5); NEUTROPHILS % 73.6 % (36.0-66.0); PLATELET COUNT, AUTOMATED 309 10^3/uL (150-450); RED BLOOD COUNT 4.74 10^6/uL (4.00-5.40); WHITE BLOOD COUNT 8.5 10^3/uL (4.0-10.0)
[2022-08-25 18:13] LABS: HCG, SERUM QUALITATIVE NEGATIVE (NEGATIVE)
[2022-08-25 18:14] LABS: LIPASE 42 U/L (12-53)
[2022-08-25 18:16] LABS: ALBUMIN 4.1 G/DL (3.2-5.2); ALKALINE PHOSPHATASE 77 U/L (46-116); ALT/SGPT 13 U/L (7.0-40); AST/SGOT 18 U/L (<34); BILIRUBIN,DIRECT 0.1 MG/DL (<0.4); BILIRUBIN,TOTAL 0.3 MG/DL (0.3-1.2); BLOOD UREA NITROGEN 9 MG/DL (9-23); CALCIUM LEVEL 9.4 MG/DL (8.5-10.1); CARBON DIOXIDE LEVEL 26 MMOL/L (20-31); CHLORIDE LEVEL 104 MMOL/L (98-107); CK-MB VALUE MASS < 1.0 NG/ML (<3.6); CPK CREATINE PHOSPHOKINASE 109 U/L (34-145); CREATININE FOR GFR 0.76 MG/DL (0.55-1.30); GLOMERULAR FILTRATION RATE > 60.0 (>60); GLUCOSE, FASTING 75 MG/DL (60-100); MB/CK RELATIVE INDEX 0.91 (< OR =4); POTASSIUM SERUM 4.1 MMOL/L (3.5-5.1); SODIUM LEVEL 136 MMOL/L (136-145); TOTAL PROTEIN 7.5 G/DL (5.7-8.2)
[2022-08-25 18:17] LABS: THYROID STIMULATING HORMONE 0.394 uIU/ML (0.55-4.78)
[2022-08-25 18:18] LABS: FREE T4 1.15 NG/DL (0.89-1.76)
[2022-08-25] MEDS ORDERED: ISOVUE-370 76% 100ML VIAL As Ordered ONE (18:18)
[2022-08-25 20:26] VITALS: BP 102/64
== END 2022-08-25 20:34 | disposition home or self-care (01) ==
LOC: M ED 15:01
DX: B34.8 Other viral infections of unspecified site (principal); R10.9 Unspecified abdominal pain; G40.909 Epilepsy, unspecified, not intractable, without status epilepticus; Z98.84 Bariatric surgery status; Z88.2 Allergy status to sulfonamides; Z79.83 Long term (current) use of bisphosphonates; Z79.899 Other long term (current) drug therapy
CPT/HCPCS: 71045; 74177; 80048; 80076; 82550; 82553; 83690; 84439; 84443; 84703; 85025; 85379; 93005; 94760; 96374; 99284; J0131; J2405; Q9967

== ENCOUNTER 2024-11-27 11:51 | Emergency (ER) | payer OTHER ==
[~2024-11-27] VITALS: Ht 144.8 cm; Wt 59.4 kg
[~2024-11-27 11:51] MED LIST changes: +B-122500 PO; +IRON27TA2 PO; +NOXI1TAB PO; +ONDA-282; -ONDA4TAB6
[2024-11-27] MEDS ORDERED: ASPI81CH48 (11:57)
[2024-11-27] MEDS ORDERED: ONDA-83 (11:57)
[2024-11-27 12:34] LABS: PLATELET COUNT, AUTOMATED 234 10^3/uL (150-450)
[2024-11-27 14:13] VITALS: BP 107/65; TEMP 97.4; O2SAT 99
== END 2024-11-27 14:18 | disposition home or self-care (01) ==
LOC: M ED 11:51
DX: O20.0 Threatened abortion (principal); Z3A.00 Weeks of gestation of pregnancy not specified; Z88.2 Allergy status to sulfonamides; Z88.6 Allergy status to analgesic agent; Z79.1 Long term (current) use of non-steroidal anti-inflammatories (NSAID); Z79.899 Other long term (current) drug therapy

== ENCOUNTER → 2024-12-27 | Outpatient (CLI) | payer OTHER ==
[~2024-12-27] MED LIST changes: +ASPI81CH48; +ONDA-83
== END ==
LOC: M WHC 14:56
PROVIDERS: ATTEND Obstetrics & Gynecology
DX: Z34.82 Encounter for supervision of other normal pregnancy, second trimester (principal); Z3A.18 18 weeks gestation of pregnancy

== ENCOUNTER → 2025-01-11 | Outpatient (CLI) | payer OTHER | LOC: M PLALAB 15:51 | PROVIDERS: ATTEND Student in an Organized Health Care Education/Training Program | DX: Z34.80 Encounter for supervision of other normal pregnancy, unspecified trimester (principal) ==

== ENCOUNTER → 2025-01-29 | Outpatient (REF) | payer OTHER ==
[2025-01-29 15:14] LABS: APPEARANCE, URINE CLEAR (CLEAR); BACTERIA, URINE AUTO 1+ (NEGATIVE); BILIRUBIN, URINE AUTO NEGATIVE (NEGATIVE); BLOOD, URINE BLOOD NEGATIVE (NEGATIVE); GLUCOSE, URINE (UA) AUTO NEGATIVE (NEGATIVE); KETONE, URINE AUTO NEGATIVE (NEGATIVE); LEUKOCYTE ESTERASE, URINE AUTO NEGATIVE (NEGATIVE); NITRITE, URINE AUTO NEGATIVE (NEGATIVE); PROTEIN, URINE AUTO NEGATIVE (NEGATIVE); RBC, URINE AUTO 0 /HPF (0-3); SPECIFIC GRAVITY URINE AUTO 1.006 (1.002-1.035); SQUAMOUS EPITHELIAL CELL UR AU 0 /HPF (0-6); UROBILINOGEN, URINE AUTO 0.2 mg/dL (0.0-2.0); WBC, URINE AUTO 0 /HPF (0-3)
== END ==
LOC: M PLALAB 09:13
PROVIDERS: ATTEND Specialist
DX: R30.0 Dysuria (principal)

== ENCOUNTER → 2025-02-04 | Outpatient (CLI) | payer OTHER | LOC: M WHC 10:53 | PROVIDERS: ATTEND Student in an Organized Health Care Education/Training Program | DX: Z34.80 Encounter for supervision of other normal pregnancy, unspecified trimester (principal) ==

== ENCOUNTER → 2025-02-08 | Outpatient (REF) | payer OTHER | LOC: M PLALAB 11:34 | PROVIDERS: ATTEND Student in an Organized Health Care Education/Training Program | DX: Z53.9 Procedure and treatment not carried out, unspecified reason (principal) ==

== ENCOUNTER → 2025-02-08 | Outpatient (CLI) | payer OTHER ==
[2025-02-08 17:56] LABS: PLATELET COUNT, AUTOMATED 275 10^3/uL (150-450)
[2025-02-08 18:27] LABS: HIV 1&2 SCREEN NEGATIVE (NEGATIVE)
[2025-02-08 18:35] LABS: HEPATITIS C VIRUS ABY INDEX < 0.02 INDEX (<0.8)
[2025-02-08 18:41] LABS: Trichomonas vaginalis (AMP) NOT DETECTED (NEGATIVE)
[2025-02-08 19:04] LABS: GC DNA AMPLIFICATION NEGATIVE (NEGATIVE)
== END ==
LOC: M PLALAB 14:47
PROVIDERS: ATTEND Student in an Organized Health Care Education/Training Program
DX: Z34.80 Encounter for supervision of other normal pregnancy, unspecified trimester (principal)

== ENCOUNTER 2025-03-12 13:31 | Outpatient (CLI) | payer OTHER ==
[~2025-03-12] VITALS: Ht 144.8 cm; Wt 68.5 kg
[2025-03-12 13:49] VITALS: BP 102/63
[2025-03-12] MEDS ORDERED: GNP250TA9 PO (13:58)
[2025-03-12 14:47] VITALS: BP 106/70
== END 2025-03-12 14:53 | disposition home or self-care (01) ==
LOC: M LDO 13:31
PROVIDERS: ATTEND Student in an Organized Health Care Education/Training Program
DX: O26.893 Other specified pregnancy related conditions, third trimester (principal); R25.2 Cramp and spasm; R19.7 Diarrhea, unspecified; Z3A.29 29 weeks gestation of pregnancy; O99.343 Other mental disorders complicating pregnancy, third trimester; F90.9 Attention-deficit hyperactivity disorder, unspecified type
CPT/HCPCS: 59025; G0463

== ENCOUNTER → 2025-03-27 | Outpatient (CLI) | payer OTHER ==
[~2025-03-27] MED LIST changes: +GNP250TA9 PO
== END ==
LOC: M WHC 15:57
PROVIDERS: ATTEND Advanced Practice Midwife
DX: O99.343 Other mental disorders complicating pregnancy, third trimester (principal)

== ENCOUNTER 2025-04-08 07:40 | Outpatient (CLI) | payer OTHER ==
[~2025-04-08] VITALS: Ht 144.8 cm; Wt 72.6 kg
[2025-04-08 07:57] VITALS: BP 100/64
[2025-04-08] MEDS ORDERED: [UNRECOGNIZED DRUG - CODE] PO (08:02)
[2025-04-08] MEDS ORDERED: HOME MED LIST COMPLETE! XX SCH (08:05)
[2025-04-08 08:10] VITALS: BP 109/59
[2025-04-08] MEDS: ACETAMINOPHEN 500 MG TAB PO ONE (08:14)
[2025-04-08] MEDS ORDERED: ADDE10CA3 PO (08:18)
[2025-04-08] MEDS ORDERED: IRON1TAB2 PO (08:18)
[2025-04-08 08:27] LABS: APPEARANCE, URINE HAZY (CLEAR); BACTERIA, URINE AUTO 1+ (NEGATIVE); BILIRUBIN, URINE AUTO NEGATIVE (NEGATIVE); BLOOD, URINE BLOOD NEGATIVE (NEGATIVE); GLUCOSE, URINE (UA) AUTO NEGATIVE (NEGATIVE); KETONE, URINE AUTO NEGATIVE (NEGATIVE); LEUKOCYTE ESTERASE, URINE AUTO NEGATIVE (NEGATIVE); NITRITE, URINE AUTO NEGATIVE (NEGATIVE); PROTEIN, URINE AUTO NEGATIVE (NEGATIVE); RBC, URINE AUTO 2 /HPF (0-3); SPECIFIC GRAVITY URINE AUTO 1.015 (1.002-1.035); SQUAMOUS EPITHELIAL CELL UR AU 8 /HPF (0-6); UROBILINOGEN, URINE AUTO 2.0 mg/dL (0.0-2.0); WBC, URINE AUTO 2 /HPF (0-3)
[2025-04-08 09:00] VITALS: BP 97/59
== END 2025-04-08 09:10 | disposition home or self-care (01) ==
LOC: M LDO 07:40
PROVIDERS: ATTEND Advanced Practice Midwife
DX: O26.893 Other specified pregnancy related conditions, third trimester (principal); O09.293 Supervision of pregnancy with other poor reproductive or obstetric history, third trimester; O99.843 Bariatric surgery status complicating pregnancy, third trimester; O99.343 Other mental disorders complicating pregnancy, third trimester; R51.0 Headache with orthostatic component, not elsewhere classified; F90.9 Attention-deficit hyperactivity disorder, unspecified type; Z88.2 Allergy status to sulfonamides; Z88.6 Allergy status to analgesic agent; Z3A.33 33 weeks gestation of pregnancy
CPT/HCPCS: 59025; 81001; G0463

== ENCOUNTER → 2025-04-19 | Outpatient (CLI) | payer OTHER ==
[~2025-04-19] MED LIST changes: +ADDE10CA3 PO; +IRON1TAB2 PO; +[UNRECOGNIZED DRUG - CODE] PO
== END ==
LOC: M WHC 09:02
PROVIDERS: ATTEND Nurse Practitioner Family
DX: O99.843 Bariatric surgery status complicating pregnancy, third trimester (principal)

== ENCOUNTER → 2025-04-29 | Outpatient (REF) | payer OTHER | LOC: M SFHCWAGY 13:14 | PROVIDERS: ATTEND Advanced Practice Midwife | DX: Z3A.36 36 weeks gestation of pregnancy (principal) ==